=== PATIENT | female | born 1980 | race Caucasian/White ===

== ENCOUNTER 2017-07-07 19:59 | Emergency (ER) | payer SELFPAY ==
--- NOTE | 2017-07-07 22:42 | ER Document Report ---
ED General - General Chief Complaint: Flu Symptoms Stated Complaint: FLU LIKE SYMPTOMS Time Seen by Provider: 07/07/17 22:16 TRAVEL OUTSIDE OF THE [place] IN LAST 30 DAYS: No - HPI Patient complains to provider of: Flulike symptoms Notes: Patient coming in for evaluation of flulike symptoms. Patient states symptoms ongoing for a week patient states she is able to fully however is here today in need of a work note. Patient states she like to go back to work on Monday. Patient states she continues to have some nausea and diarrhea. Patient states before that she was having fevers chills and muscle aches. Patient states she does smoke. Patient also complains of nonproductive cough. Patient denies any fevers at this time. Patient resting comfortably eating a bag of chips upon my evaluation. - Related Data Allergies/Adverse Reactions: No Known Allergies Allergy (Verified 12/04/15 08:37) Past Medical History - Social History Smoking Status: Unknown if Ever Smoked Family History: None Past Surgical History: Reports: Hx Tubal Ligation Review of Systems - Review of Systems Constitutional: Other - Flulike symptoms EENT: No symptoms reported Cardiovascular: No symptoms reported Respiratory: No symptoms reported Gastrointestinal: No symptoms reported Genitourinary: No symptoms reported Female Genitourinary: No symptoms reported Musculoskeletal: No symptoms reported Skin: No symptoms reported Hematologic/Lymphatic: No symptoms reported Neurological/Psychological: No symptoms reported Physical Exam - Vital signs Vitals: Pulse Pulse Ox 114 H 98 07/07/17 20:36 07/07/17 20:36 Interpretation: Normal - General General appearance: Appears well, Alert - HEENT Head: Normocephalic, Atraumatic Eyes: Normal Pupils: PERRL - Respiratory Respiratory status: No respiratory distress Chest status: Nontender Breath sounds: Normal, Nonproductive cough Chest palpation: Normal - Cardiovascular Rhythm: Regular Heart sounds: Normal auscultation Murmur: No - Abdominal Inspection: Normal Distension: No distension Bowel sounds: Normal Tenderness: Nontender Organomegaly: No organomegaly - Back Back: Normal, Nontender - Extremities General upper extremity: Normal inspection, Nontender, Normal color, Normal ROM , Normal temperature General lower extremity: Normal inspection, Nontender, Normal color, Normal ROM , Normal temperature, Normal weight bearing. No: Wanda's sign - Neurological Neuro grossly intact: Yes Cognition: Normal Orientation: AAOx4 Daria Coma Scale Eye Opening: Spontaneous [place] Coma Scale Verbal: Oriented Daria Coma Scale Motor: Obeys Commands Daria Coma Scale Total: 15 Speech: Normal Motor strength normal: LUE, RUE, LLE, RLE Sensory: Normal - Psychological Associated symptoms: Normal affect, Normal mood - Skin Skin Temperature: Warm Skin Moisture: Dry Skin Color: Normal Course - Re-evaluation Re-evalutation: 07/07/17 23:18 Patient was educated to stop smoking. Patient was also educated about use of honey and other off the counter medications for cough suppression. Encouraged patient drink plenty of fluids. Otherwise physical examination normal will discharge patient home work note given patient was given nausea medication - Vital Signs Vital signs: Temp Pulse Resp BP Pulse Ox 98.4 F 117 H 16 133/75 H 93 07/07/17 22:42 07/07/17 22:42 07/07/17 22:42 07/07/17 22:42 07/07/17 22:42 Discharge - Discharge Clinical Impression: Flu-like symptoms Disposition: HOME, SELF-CARE Instructions: Gastroenteritis (adult) ([facility]), Influenza ([facility]) [id number], Stop Smoking ([facility]) Additional Instructions: You can expect to continue to cough and feel unwell for approximately 2-3 weeks after experiencing the flu. Stop smoking. Please make sure you are drinking plenty of water. To help out with your cough she may try [id number] cough medications cough lozenges or actually honey. Honey has been proven in the medical literature to aid in cough suppression. you can mix honey and water tea or your favorite beverage to help out with cough suppression Please continue to take Tylenol and Motrin for pain or fever. You may take nausea medication as prescribed. You do not have to get both nausea medications filled however if one does not relieve her nausea he may try the other one. Please be careful as that Phenergan may make people sleepy. Prescriptions: Ondansetron [Zofran Odt] 4 mg PO Q6 PRN #30 tab.rapdis PRN Reason: For Nausea/Vomiting Promethazine HCl [Phenergan 25 mg Tablet] 25 mg PO Q6 #30 tablet Forms: Return to Work
[2017-07-07 22:43] VITALS: BP 133/75
== END 2017-07-07 22:40 | disposition home or self-care (01) ==
LOC: ER 19:59
DX: R11.0 Nausea (principal); R19.7 Diarrhea, unspecified; R05 Cough
CPT/HCPCS: 99283

== ENCOUNTER 2018-02-15 05:50 | Emergency (ER) | payer MEDICAID ==
[2018-02-15 10:04] LABS: ABSOLUTE BASOPHILS # (AUTO) 0.1 10^3/uL (0.0-0.2); ABSOLUTE EOSINOPHILS # (AUTO) 0.1 10^3/uL (0.0-0.6); ABSOLUTE LYMPHOCYTES (AUTO) 3.5 10^3/uL (0.5-4.7); ABSOLUTE MONOCYTES (AUTO) 1.3 10^3/uL (0.1-1.4); ABSOLUTE NEUT (AUTO) 14.5 10^3/uL (1.7-8.2); BASOPHILS % (AUTO) 0.5 % (0-2); EOSINOPHILS % (AUTO) 0.7 % (0-6); HEMATOCRIT 37.4 % (36.0-47.0); HEMOGLOBIN 11.7 g/dL (12.0-15.5); LYMPHOCYTES % (AUTO) 17.8 % (13-45); MEAN CORPUSCULAR HEMOGLOBIN 22.4 pg (27.0-33.4); MEAN CORPUSCULAR HGB CONC 31.2 g/dL (32.0-36.0); MEAN CORPUSCULAR VOLUME 72 fl (80-97); MONOCYTES % (AUTO) 6.8 % (3-13); PLATELET COUNT 322 10^3/uL (150-450); RED BLOOD COUNT 5.21 10^6/uL (3.72-5.28); RED CELL DISTRIBUTION WIDTH 17.1 % (11.5-14.0); SEGMENTED NEUTROPHILS % (AUTO) 74.2 % (42-78); TOTAL CELLS COUNTED % (AUTO) 100 %; WHITE BLOOD COUNT 19.5 10^3/uL (4.0-10.5)
[2018-02-15 10:07] LABS: CHLAM PCR NOT DETECTED (NOT DETECT); GON PCR NOT DETECTED (NOT DETECT)
[2018-02-15 10:30] LABS: ALANINE AMINOTRANSFERASE 26 U/L (9-52); ALBUMIN 3.7 g/dL (3.5-5.0); ALKALINE PHOSPHATASE 63 U/L (38-126); ANION GAP 10 (5-19); APPEARANCE,URINE CLEAR; ASPARTATE AMINO TRANSFERASE 18 U/L (14-36); BILIRUBIN,TOTAL 0.4 mg/dL (0.2-1.3); BILIRUBIN,URINE NEGATIVE (NEGATIVE); BLOOD UREA NITROGEN 7 mg/dL (7-20); CARBON DIOXIDE 21 mmol/L (22-30); CHLORIDE 106 mmol/L (98-107); COLOR,URINE YELLOW; GLUCOSE 132 mg/dL (75-110); GLUCOSE, URINE NEGATIVE (NEGATIVE); KETONES,URINE NEGATIVE (NEGATIVE); LEUKOCYTE ESTERASE,URINE NEGATIVE (NEGATIVE); NITRITE,URINE NEGATIVE (NEGATIVE); POTASSIUM 3.7 mmol/L (3.6-5.0); PROTEIN,URINE NEGATIVE (NEGATIVE); SODIUM 137.4 mmol/L (137-145); URINE SPECIFIC GRAVITY 1.008; UROBILINOGEN,URINE NEGATIVE mg/dL (<2.0)
[2018-02-15 10:31] LABS: BILIRUBIN,DIRECT 0.2 mg/dL (0.0-0.4); LIPASE 70.4 U/L (23-300); TOTAL PROTEIN 6.5 g/dL (6.3-8.2)
--- NOTE | 2018-02-15 10:31 | RADIOLOGY REPORT (SQ) ---
EXAM DESCRIPTION: CT ABDOMEN WITH IV ORAL CONT COMPLETED DATE/TIME: 02/15/2018 10:15 am REASON FOR STUDY: NAUSEA COMPARISON: None. TECHNIQUE: CT scan of the abdomen performed with intravenous and with oral contrast using helical sc anning technique with dynamic intravenous contrast injection. Images reviewed with lung, soft tissue, and bone windows. Reconstructed coronal and sagittal MPR images reviewed. Delayed images for evaluat ion of the urinary system also acquired and evaluated. All images stored on PACS. All CT scanners at this facility use dose modulation, iterative reconstruc tion, and/or weight based dosing when appropriate to reduce radiation dose to as low as reasonably ac hievable (ALARA). [facility]: Dose Right [facility]: CareDose [facility]: Dose Right [facility]: Teradose 4D [facility]: Hand Talk CONTRAST TYPE AND DOSE: contrast/concentration: Isovue 350.00 mg/ml; Total Contrast Delivered: 95.0 ml; Total Saline Delivered: 71.0 ml RENAL FUNCTION: None required. The patient is less than 50 years old. RADIATION DOSE: CT Rad equipment meets quality standard of care and radiation dose reduction techniq ues were employed. CTDIvol: 16.3 - 19.7 mGy. DLP: 1848 mGy-cm. . LIMITATIONS: None. FINDINGS: LOWER CHEST: Small hiatal hernia. No nodules or infiltrates. LIVER: Normal size. No masses. No dilated ducts. Diffuse low attenuation from fatty liver SPLEEN: Normal size. No focal lesions. PANCREAS: No masses. No significant calcifications. No adjacent inflammation or peripancreatic fluid collections. Pancreatic duct not dilated. GALLBLADDER: No identified stones by CT criteria. No inflammatory changes to suggest cholecystitis. ADRENAL GLANDS: No significant masses or asymmetry. RIGHT KIDNEY AND URETER: No solid masses. No significant calcifications. No hydronephrosis or hyd roureter. LEFT KIDNEY AND URETER: No solid masses. A 6 mm left midpole intrarenal nonobstructive stone is pre sent on axial image 34, 762 Hounsfield units. No hydronephrosis or hydroureter. AORTA AND VESSELS: No aneurysm. No dissection. Renal arteries, SMA, celiac without stenosis. RETROPERITONEUM: No retroperitoneal adenopathy, hemorrhage or masses. BOWEL AND PERITONEAL CAVITY: Patient drank oral contrast. No CT evidence of bowel obstruction. No m asses or inflammatory changes. No free fluid or peritoneal masses. APPENDIX: Normal. ABDOMINAL WALL: No masses. No hernias. BONES: No significant or acute findings. PELVIS: Normal size female pelvic organs. No free cul-de-sac fluid. No pelvic adenopathy or masses. Bladder unremarkable. IMPRESSION: Nonobstructive left midpole intrarenal stone. No CT evidence of bowel obstruction, free air or free fluid. Fatty liver TECHNICAL DOCUMENTATION: JOB ID: [id number] Quality ID # [id number]: Final reports with documentation of one or more dose reduction techniques (e.g., Au tomated exposure control, adjustment of the mA and/or kV according to patient size, use of iterative reconstruction technique) 2010 [employer]- All Rights Reserved Reading location - IP/workstation name: [email or web address]
[2018-02-15 10:32] LABS: FREE T4 (FREE THYROXINE) 1.04 ng/dL (0.78-2.19); THYROID STIMULATING HORMONE 1.97 uIU/mL (0.47-4.68)
--- NOTE | 2018-02-15 10:42 | ER Document Report ---
Doctor's Note Notes: 02/15/18 10:42 room 7: This is a female patient who presents emergency department for evaluation of 2- 3 months of symptoms. Patient states that "I think I have cancer". States that she is tired all of the time. Has diarrhea and constipation. Has body aches all over. Does not have any energy. Has had some weight loss. Denies any dysuria. Does complain of frequent urination but denies frequent thirst. States that she does not have insurance so she can go to the doctor. Was finally forced to come here by her significant other because he is tired of seeing her in bed all day long. Past medical history: Denies any significant past medical history Past surgical history: Tubal ligation Social history: Does not use alcohol or drugs. Does smoke Family history: Significant for multiple cancers Review of systems: Constitutional: denies: Chills, Diaphoresis, Fever, does complain of weakness and fatigue. EENT: denies: Eye discharge, Blurred vision, Tearing, Double vision, Nose congestion, Nose discharge, Throat swelling, Mouth pain Cardiovascular: denies: Palpitations, Heart racing, Orthopnea, Dyspnea, Chest pain Respiratory: denies: Cough, Hurts to breathe, Wheezing, Shortness of breath Gastrointestinal: Does complain of abdominal pain, diarrhea and intermittent constipation Genitourinary: denies: Burning, Dysuria, Discharge, Flank pain, Hematuria. Does complain of frequency of urination Musculoskeletal: denies: Joint pain, Joint swelling, Muscle pain, Muscle stiffness, back pain Hematologic/Lymphatic: denies: Anemia, Easy bleeding, Easy bruising, Blood clots Neurological/Psychological: denies: Confusion, Dementia, Depression, Loss of consciousness Skin: No lesions, no masses, no skin breakdown, no abscesses Physical exam: General: Alert no acute distress HEENT: Atraumatic, normocephalic, pupils equal round react to light and accommodation, extraocular muscles are intact, nose is non tender, posterior pharynx is without erythema or exudate. Tongue is unremarkable. No neck masses Heart: Heart with regular rate and rhythm, no murmurs, no rubs, no clicks Lungs: Lungs clear to auscultation bilaterally, no wheezes, rhonchi, rales Abdomen: Abdomen is soft, there is tenderness in the right upper quadrant, right lower quadrant but no guarding or rebound. No masses palpable. Neuro: cranial nerves II through XII intact, reflexes intact, sensation intact, Extremities:Moving all extremities. Equal strength bilaterally in the upper lower extremities. No significant deformity Skin: No lesions. Skin intact Psych: Normal insight. Normal judgment Discharge - Discharge Clinical Impression: Leukocytosis (leucocytosis) Qualifiers: Leukocytosis type: unspecified Qualified Code(s): D72.829 - Elevated white blood cell count, unspecified Diarrhea Qualifiers: Diarrhea type: unspecified type Qualified Code(s): R19.7 - Diarrhea, unspecified Condition: Good Disposition: HOME, SELF-CARE Instructions: Abdominal Pain ([facility]), Leukocytosis ([facility]) Prescriptions: Hydrocodone/Acetaminophen [[place] 5-325 mg Tablet] 1 tab PO TID PRN 5 Days #15 tablet PRN Reason: Pain Scale Of 4 Ondansetron [Zofran Odt 4 mg Tablet] 1 - 2 tab PO Q4H PRN #15 tab.rapdis PRN Reason: For Nausea/Vomiting Prednisone [Deltasone 20 mg Tablet] 3 tab PO DAILY 5 Days #15 tablet Sulfamethoxazole/Trimethoprim [Bactrim Ds Tablet] 1 each PO BID 7 Days #14 tablet Forms: Return to Work Referrals: SUSU LOAIZA MD [ACTIVE STAFF] - Follow up in 3-5 days AMY SRIVASTAVA MD [ACTIVE STAFF] - Follow up in 3-5 days Course - Re-evaluation Re-evalutation: 02/15/18 10:45 Laboratory 02/15/18 02/15/18 02/15/18 06:56 06:56 06:56 WBC 19.5 H RBC 5.21 Hgb 11.7 L Hct 37.4 MCV 72 L MCH 22.4 L MCHC 31.2 L RDW 17.1 H Plt Count 322 Seg Neutrophils % 74.2 Lymphocytes % 17.8 Monocytes % 6.8 Eosinophils % 0.7 Basophils % 0.5 Absolute Neutrophils 14.5 H Absolute Lymphocytes 3.5 Absolute Monocytes 1.3 Absolute Eosinophils 0.1 Absolute Basophils 0.1 Sodium 137.4 Potassium 3.7 Chloride 106 Carbon Dioxide 21 L Anion Gap 10 BUN 7 Creatinine 0.65 Est GFR ( Amer) > 60 Est GFR (Non-Af Amer) > 60 Glucose 132 H Calcium 9.0 Total Bilirubin 0.4 Direct Bilirubin 0.2 Neonat Total Bilirubin Not Reportable Neonat Direct Bilirubin Not Reportable Neonat Indirect Bili Not Reportable AST 18 ALT 26 Alkaline Phosphatase 63 Total Protein 6.5 Albumin 3.7 Lipase 70.4 TSH 1.97 Free T4 1.04 Urine Color Urine Appearance Urine pH Ur Specific [place] Urine Protein Urine Glucose (UA) Urine Ketones Urine Blood Urine Nitrite Urine Bilirubin Urine Urobilinogen Ur Leukocyte Esterase Urine WBC (Auto) Urine RBC (Auto) Urine Bacteria (Auto) Squamous Epi Cells Auto Urine Mucus (Auto) Urine Ascorbic Acid Urine HCG, Qual Chlamydia DNA (PCR) N.gonorrhoeae DNA (PCR) 02/15/18 02/15/18 06:56 07:38 WBC RBC Hgb Hct MCV MCH MCHC RDW Plt Count Seg Neutrophils % Lymphocytes % Monocytes % Eosinophils % Basophils % Absolute Neutrophils Absolute Lymphocytes Absolute Monocytes Absolute Eosinophils Absolute Basophils Sodium Potassium Chloride Carbon Dioxide Anion Gap BUN Creatinine Est GFR ( Amer) Est GFR (Non-Af Amer) Glucose Calcium Total Bilirubin Direct Bilirubin Neonat Total Bilirubin Neonat Direct Bilirubin Neonat Indirect Bili AST ALT Alkaline Phosphatase Total Protein Albumin Lipase TSH Free T4 Urine Color YELLOW Urine Appearance CLEAR Urine pH 5.0 Ur Specific [place] 1.008 Urine Protein NEGATIVE Urine Glucose (UA) NEGATIVE Urine Ketones NEGATIVE Urine Blood NEGATIVE Urine Nitrite NEGATIVE Urine Bilirubin NEGATIVE Urine Urobilinogen NEGATIVE Ur Leukocyte Esterase NEGATIVE Urine WBC (Auto) 1 Urine RBC (Auto) 1 Urine Bacteria (Auto) TRACE Squamous Epi Cells Auto 5 Urine Mucus (Auto) RARE Urine Ascorbic Acid NEGATIVE Urine HCG, Qual NEGATIVE Chlamydia DNA (PCR) NOT DETECTED N.gonorrhoeae DNA (PCR) NOT DETECTED Abdomen CT 02/15/18 00:00 IMPRESSION: Nonobstructive left midpole intrarenal stone. No CT evidence of bowel obstruction, free air or free fluid. Fatty liver 02/15/18 12:24 Uncertain etiology of patient's symptoms. Her white blood cell count is remarkably elevated. She is afebrile. She is not . There is no GC and chlamydia detected on the urine DNA. Her ultrasound and CT scan are unremarkable. At this time I am going to refer her to hematology to make sure that there is no signs of sort of underlying malignancy. Recommend close outpatient follow-up. This definitely could represent a spectrum of inflammatory bowel disease with her frequent diarrhea for over 2 months and elevated WBC count. I am going to start her on some prednisone. Has an appointment with her primary care doctor. Stool samples have been obtained for outpatient workup. Will DC at this time. 02/15/18 12:44 - Vital Signs Vital signs: Temp Pulse Resp BP Pulse Ox 98.2 F 73 13 113/61 97 02/15/18 11:04 02/15/18 11:04 02/15/18 11:04 02/15/18 11:04 02/15/18 11:04 - Laboratory Result Diagrams: 02/15/18 06:56 02/15/18 06:56 Laboratory results interpreted by me: 02/15/18 02/15/18 06:56 06:56 WBC 19.5 H Hgb 11.7 L MCV 72 L MCH 22.4 L MCHC 31.2 L RDW 17.1 H Absolute Neutrophils 14.5 H Carbon Dioxide 21 L Glucose 132 H
--- NOTE | 2018-02-15 10:53 | RADIOLOGY REPORT (SQ) ---
EXAM DESCRIPTION: U/S ABDOMEN LIMITED W/O DOP COMPLETED DATE/TIME: 02/15/2018 10:45 am REASON FOR STUDY: er 7 abd pain, nausea COMPARISON: None. TECHNIQUE: Dynamic and static grayscale images acquired of the abdomen and recorded on PACS. Additio nal selected color Doppler and spectral images recorded. LIMITATIONS: None. FINDINGS: PANCREAS: No masses. Visualized pancreatic duct normal caliber. LIVER: No masses. Echotexture normal. LIVER VASCULATURE: Normal directional flow of the main portal vein and hepatic veins. GALLBLADDER: No stones. Normal wall thickness. No pericholecystic fluid. ULTRASOUND-DETECTED HOLCOMB'S SIGN: Negative. INTRAHEPATIC DUCTS AND COMMON DUCT: CBD and intrahepatic ducts normal caliber. No filling defects. INFERIOR VENA CAVA: Normal flow. AORTA: No aneurysm. RIGHT KIDNEY: Normal size. Normal echogenicity. No solid or suspicious masses. No hydronephrosis. No calcifications. PERITONEAL AND RIGHT PLEURAL SPACE: No ascites or effusions. OTHER: No other significant findings. IMPRESSION: NORMAL RIGHT UPPER QUADRANT ULTRASOUND. TECHNICAL DOCUMENTATION: JOB ID: [id number] [employer]- All Rights Reserved Reading location - IP/workstation name: [email or web address]
[2018-02-15 11:06] VITALS: BP 113/61
== END 2018-02-15 12:59 | disposition home or self-care (01) ==
LOC: ER 05:50
DX: R19.7 Diarrhea, unspecified (principal); D72.829 Elevated white blood cell count, unspecified
CPT/HCPCS: 36415; 74160; 76705; 80053; 81001; 81025; 83690; 84439; 84443; 85025; 87491; 87591; 99284

== ENCOUNTER 2020-05-25 23:48 | Emergency (ER) | payer MEDICAID ==
[2020-05-26] MEDS ORDERED: OXYCODONE-ACETAMINOPHEN 5-325 MG TABLET ONE (03:09)
[2020-05-26] MEDS ORDERED: LIDOCAINE 1%/EPINEPHRINE INJ 20 ML VIAL ONE (03:10)
[2020-05-26] MEDS ORDERED: DIPH/PERTUSS(ACELL)/TETANUS VAC/PF 0.5 ML SYR (>=10YO) IM ONE (04:48)
[2020-05-26] MEDS ORDERED: HYDROCODONE/ACETAMINOPHEN 5-325 MG (6 TAB/ER DISP) PO PRN (04:48)
--- NOTE | 2020-05-26 04:48 | ER Document Report ---
ED Wound - General Chief Complaint: Laceration Stated Complaint: HAND LACERATION LEFT HAND Time Seen by Provider: 05/26/20 04:41 Primary Care Provider: ROCIO CANTU FNP-C [Primary Care Provider] - Follow up as needed Mode of Arrival: Ambulatory Information source: Patient Notes: 39-year-old female presenting to the emergency department chief complaint of laceration to her left wrist. Patient reports she was using a newly sharpened kitchen knife when the knife slipped lacerating her wrist. She is right-hand dominant. Her tetanus is not up-to-date. She reports this occurred just prior to arrival. TRAVEL OUTSIDE OF THE [place] IN LAST 30 DAYS: No - Related Data Allergies/Adverse Reactions: No Known Allergies Allergy (Verified 02/15/18 10:54) Past Medical History - General Information source: Patient - Social History Smoking Status: Current Every Day Smoker Chew tobacco use (# tins/day): No Frequency of alcohol use: Occasional Drug Abuse: None Family History: None Patient has homicidal ideation: No - Medical History Medical History: Negative Renal/ Medical History: Denies: Hx Peritoneal Dialysis Past Surgical History: Reports: Hx Tubal Ligation Review of Systems - Review of Systems Skin: See HPI -: Yes All other systems reviewed and negative Physical Exam - Vital signs Vitals: Temp Pulse Resp BP Pulse Ox 98.2 F 127 H 20 146/70 H 99 05/26/20 00:01 05/26/20 00:01 05/26/20 00:01 05/26/20 00:01 05/26/20 00:01 - Notes Notes: PHYSICAL EXAMINATION: GENERAL: Well-appearing, well-nourished and in no acute distress. HEAD: Atraumatic, normocephalic. EYES: Pupils equal round extraocular movements intact, conjunctiva are normal. ENT: Nares patent NECK: Normal range of motion LUNGS: No respiratory distress Musculoskeletal: Normal range of motion to left wrist, normal flexion and extension of all digits as well as wrist, cap refill less than 3 seconds, strong radial pulse. NEUROLOGICAL: Normal speech, normal gait. PSYCH: Normal mood, normal affect. SKIN: 8 cm laceration noted over the left wrist that extends from the radial aspect all the way around to the ulnar aspect. The wound approximates well, it is deep in some areas, there is no obvious exposed tendons. There is no obvious arterial bleeding. Course - Re-evaluation Re-evalutation: Laceration repaired under sterile technique, patient tolerated well, dressing applied. See procedure note. - Vital Signs Vital signs: Temp Pulse Resp BP Pulse Ox 97.6 F 101 H 20 141/78 H 95 05/26/20 04:55 05/26/20 04:55 05/26/20 00:01 05/26/20 04:55 05/26/20 04:55 - Laboratory Results Critical Laboratory Results Reviewed: No Critical Results - Radiology Results Critical Radiology Results Reviewed: No Critical Results Procedures - Laceration/Wound Repair Left wrist Wound length (cm): 8 Wound's Depth, Shape: Irregular Laceration pre-procedure: Sterile PPE donned Anesthetic type: 1% Lidocaine w/epi Wound explored: Clean Wound Debrided: Minimal Wound Repaired With: Sutures Suture Size/Type: Vicryl, 4:0, 3:0, Ethilon, Prolene Number of Sutures: 16 Layer Closure?: Yes Deep Layer Suture Size/Type: 3:0, Chromic Number Deep Layer Sutures: 1 Post-procedure wound care: Sterile dressing applied, Splint applied Post-procedure NV exam normal: Yes Complications: No Discharge - Discharge Clinical Impression: Laceration of left wrist Qualifiers: Encounter type: initial encounter Qualified Code(s): S61.512A - Laceration without foreign body of left wrist, initial encounter Condition: Stable Disposition: HOME, SELF-CARE Additional Instructions: Laceration Care Your laceration has been sutured to keep the skin edges aligned during healing. The time of suture removal depends on the nature and location of your cut. Please follow the care instructions the doctor has outlined for you and return for further care, according to the schedule you've been given. Keep the wound and dressing clean. Unless you were told otherwise, you may shower daily, blotting the wound dry with a clean, unused towel. At other times, If the dressing gets wet or blood soaked, remove it and blot the wound dry, then reapply a new dressing. Unless you were instructed otherwise, dressings should be changed at least daily. If any signs of infection occur (swelling, redness, increasing tenderness, red streaks, tender lumps in the armpit or groin above the laceration, or fever), see the doctor immediately. Please return to the emergency department or your primary care provider in 10-12 days for suture removal. Please return earlier if you develop any signs of infection such as increased redness, swelling, foul-smelling drainage or fever. Prescriptions: Cephalexin [Keflex] 500 mg PO BID #14 capsule Forms: Return to Work Referrals: ROCIO CANTU FNP-C [Primary Care Provider] - Follow up as needed
[2020-05-26 04:59] VITALS: BP 141/78
--- NOTE | 2020-05-26 05:37 | RADIOLOGY REPORT (SQ) ---
Left wrist x-ray three views on 05/26/2020 at 3:07 AM CLINICAL INDICATION: Cut wrist with knife COMPARISON: None FINDINGS: There is no radiopaque foreign body. There are no fractures. Visualized joints are well aligned. No bony abnormality is noted. IMPRESSION: No acute bony abnormality.
== END 2020-05-26 05:15 | disposition home or self-care (01) ==
LOC: ER 23:48
DX: S61.512A Laceration without foreign body of left wrist, initial encounter (principal); W26.0XXA Contact with knife, initial encounter; Y93.G1 Activity, food preparation and clean up; Z23 Encounter for immunization; F17.200 Nicotine dependence, unspecified, uncomplicated
CPT/HCPCS: 99284; 90471; 73110; 90715; 12034; J3490